=== PATIENT | male | born 2000 | race American Indian/Alaskan Native ===

== ENCOUNTER 2022-01-27 12:00 | Emergency (ER) | payer SELFPAY ==
[2022-01-27 12:17] VITALS: BP 125/73
--- NOTE | 2022-01-27 13:07 | Emergency Department Report ---
Eye Injury/Foreign Body - HPI Duration: 1 Day Eye Location: Bilateral Severity: Moderate Tetanus Status: Up to Date Eye Symptoms: Eye Pain: No, Blurred Vision: No, Eye Redness: Yes, Grinding/Hammering Metal: No, Used Eye Protection: No, Contact Lens Use: No, Recalls Injury: No, Photophobia: No Other History: Patient is a pleasant 21-year-old that comes into the ER with bilateral pinkeye. He states he is left in a hotel last night and woke up this morning and his eyes were matted shut. He has no trauma. He does not wear contact lenses. He does not work with chemicals. His vision is normal. Denies recent URI ED Review of Systems ROS: Stated complaint: INFECTION IN EYES Other details as noted in HPI Comment: All other systems reviewed and negative ED Past Medical Hx - Past Medical History Previous Medical History?: No - Surgical History Past Surgical History?: No - Family History Family history: no significant - Social History Smoking Status: Never Smoker Substance Use Type: None - Medications Home Medications: Home Medications Medication Instructions Recorded Confirmed Last Taken Type Erythromycin [Erythromycin Ophth 0.5 inch OU Q6H #1 tube 01/27/22 Unknown Rx Oint] Eye Injury Exam - Exam General: Vital signs noted. No distress. Alert and acting appropriately. Pupils equal round react to light EOMs intact Globe intact Bilateral eyes conjunctiva redness Alert oriented times 4 S1-S2 Lungs clear to auscultation Abdomen soft nontender ED Course Vital Signs 01/27/22 12:13 Temperature 98.4 F Pulse Rate 86 Respiratory 18 Rate Blood Pressure 125/73 [Right] O2 Sat by Pulse 98 Oximetry ED Medical Decision Making - Medical Decision Making Vital Signs 01/27/22 12:13 Temperature 98.4 F Pulse Rate 86 Respiratory 18 Rate Blood Pressure 125/73 [Right] O2 Sat by Pulse 98 Oximetry Patient has bilateral redness of his eyes. He states he slept in a hotel last night and woke up with his eyes matted shut. He denies having had this in the past during the spring. No trauma or exposure to chemicals. He does not wear contacts. He does not well. Vision is unchanged. Patient being discharged home with discharge plan of care including medications, follow-up, diet and activity. Patient verbalizes understanding of plan of care - Differential Diagnosis Conjunctivitis: Bacterial, viral, allergic Critical care attestation.: If time is entered above; I have spent that time in minutes in the direct care of this critically ill patient, excluding procedure time. ED Disposition Clinical Impression: Conjunctivitis Qualifiers: Conjunctivitis type: unspecified Disposition: HOME / SELF CARE / HOMELESS Is pt being admited?: No Does the pt Need Aspirin: No Condition: Stable Instructions: How to Use Eye Drops and Eye Ointments Additional Instructions: Medication as ordered today. Follow-up with eye doctor or PCP next week to make sure this is better. Have given you referrals below Tylenol or Motrin for discomfort Recommend [id number] Zyrtec which will also help if there is an allergic component to this Referrals: PRIMARY CARE, [Primary Care Provider] - 3-5 Days RENALDO GARCIA MD [Staff Physician] - 3-5 Days SYDNEE VENTURA MD [Staff Physician] - 3-5 Days Time of Disposition: 13:11
== END 2022-01-27 13:32 | disposition home or self-care (01) ==
LOC: ED 12:00
DX: H10.33 Unspecified acute conjunctivitis, bilateral (principal)
CPT/HCPCS: 99282